=== PATIENT | female | born 1990 | race Caucasian/White ===

== ENCOUNTER 2021-05-19 09:10 | Emergency (ER) | payer MEDICAID ==
[~2021-05-19] VITALS: Ht 165.1 cm; Wt 82.6 kg
[2021-05-19 09:27] VITALS: BP 110/73
--- NOTE | 2021-05-19 09:34 | PHYS DOC ---
Past History Past Surgical History: No Surgical History Alcohol Use: None Adult General Chief Complaint Chief Complaint: MECHANICAL FALL HPI HPI Patient is a 30-year-old female presenting for fall. Patient reports fall was 1 week ago while walking down stairs, fell directly on her backside hitting tailbone and subsequently hit five steps before coming to a complete stop. Did not hit head or lose consciousness. Reports since then she has taken NSAIDs and Tylenol without significant pain relief. She has been seen in outpatient setting by her pain management physicians and is pending outpatient MRI. Ongoing pain with occasional radiation of electric type pain along lateral and posterior portion of right lower extremity prompted her to come in for evaluation. No changes in bladder or bowel function, no saddle anesthesia or other concerning red flag signs or symptoms of back pain Review of Systems Review of Systems Fourteen body systems of review of systems have been reviewed. See HPI for pertinent positives and negative responses, other patel all other systems are negative, non-pertinent or non-contributory Allergies Allergies Allergies Coded Allergies Type Severity Reaction Last Updated Verified metoclopramide Allergy Unknown 05/19/21 Yes Physical Exam Physical Exam Constitutional: Well developed, well nourished, no acute distress, non-toxic appearance. HENT: Normocephalic, atraumatic, bilateral external ears normal, oropharynx moist, no oral exudates, nose normal. Eyes: PERRLA, EOMI, conjunctiva normal, no discharge. Neck: Normal range of motion, no tenderness, supple, no stridor. Cardiovascular: Heart rate regular, sinus rhythm, no murmurs rubs or gallops Lungs & Thorax: Bilateral breath sounds clear to auscultation Abdomen: Bowel sounds normal, soft, no tenderness, no masses, no pulsatile masses. Nonsurgical abdomen, no peritoneal signs Skin: Warm, dry, no erythema, no rash. Back: No midline step-off or tenderness, no CVA tenderness. There is pain to palpation directly over midline along sacrum region Extremities: No tenderness, no cyanosis, no clubbing, ROM intact, no edema. Neurologic: Alert and oriented X 3, no saddle anesthesia and/or bladder or bowel incontinence, cranial nerves II through XII intact, downgoing toes bilaterally with stimulation, normal motor & sensory function, no focal deficits noted. Psychologic: Affect normal, judgement normal, mood normal. Current Patient Data Vital Signs Vital Signs Date Time Temp Pulse Resp B/P (MAP) Pulse Ox O2 Delivery O2 Flow Rate FiO2 05/19/21 09:27 98.4 77 18 110/73 (85) 98 Room Air EKG EKG [] Radiology/Procedures Radiology/Procedures EXAM: Pelvis CT without intravenous contrast. HISTORY: Fall. TECHNIQUE: Computed tomographic images of the pelvis were obtained without contrast. Multiplanar reformatting was performed. *One or more of the following individualized dose reduction techniques were utilized for this examination: 1. Automated exposure control. 2. Adjustment of the mA and/or kV according to patient size. 3. Use of iterative reconstruction technique. COMPARISON: None. FINDINGS: There is no fracture. The femoral heads are normal in configuration and location. The pubis symphysis and sacroiliac joints are intact. There is sacralization of the right L5 transverse process resulting in suspected art iculation with the underlying sacrum. There is a shallow posterior central to left paracentral disc protrusion superimposed on a disc bulge at L4-L5. This is associated with mild left foraminal and central canal stenosis. There is no appendicitis. There is an IUD within the uterus. There are multiple ovarian follicles. There is trace pelvic free fluid, within physiologic limits f or a premenopausal female. There is no lymphadenopathy. IMPRESSION: 1. No acute osseous finding. 2. Transitional lumbosacral segment, a normal variant. 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 3. Degenerative change at L4-L5, resulting in mild left foraminal and central canal stenosis. Electronically signed by: Jovanna Thornton MD (05/19/2021 9:58 AM) [id number] Heart Score C/O Chest Pain: No Risk Factors: Risk Factors: DM, Current or recent (<one month) smoker, HTN, HLP, family history of CAD, obesity. Risk Scores: Risk Factors: DM, Current or recent (<one month) smoker, HTN, HLP, family history of CAD, obesity. Course & Med Decision Making Course & Med Decision Making ABCs unremarkable HPI physical exam and comprehensive ER work-up consisting of CT of pelvis in setting of recent trauma unremarkable for any emergent or surgical issues. Pain controlled with provided ER intervention. She is pending outpatient MRI No further diagnostic work-up indicated in ER setting. Discharge with close PCP follow-up advised Johnathan Disclaimer Johnathan Disclaimer This electronic medical record was generated, in whole or in part, using a voice recognition dictation system. Departure Departure: Impression: Primary Impression: Tailbone injury Disposition: HOME / SELF CARE / HOMELESS Condition: STABLE Referrals: NON,STAFF (PCP) Additional Instructions: You were seen for most likely at that level musculoskeletal pain from your fall. You should return to the ED if you develop worsening pain, fever, numbness, tingling, weakness, or any other new or concerning symptoms. Your pain is most likely due to a muscle strain and should improve with ibuprofen and/or Tylenol, stretching, and activity. Please contact your outpatient [employer] for continued outpatient care. If it does not improve you should follow up with a primary care doctor. AMELIE HURLEY DO May 19, 2021 09:34
--- NOTE | 2021-05-19 10:01 | RAD ---
EXAM: Pelvis CT without intravenous contrast. HISTORY: Fall. TECHNIQUE: Computed tomographic images of the pelvis were obtained without contrast. Multiplanar refo rmatting was performed. *One or more of the following individualized dose reduction techniques were utilized for this examina tion: 1. Automated exposure control. 2. Adjustment of the mA and/or kV according to patient size. 3. Use of iterative reconstruction technique. COMPARISON: None. FINDINGS: There is no fracture. The femoral heads are normal in configuration and location. The pubis symphysis and sacroiliac joints are intact. There is sacralization of the right L5 transverse proces s resulting in suspected articulation with the underlying sacrum. There is a shallow posterior central to left paracentral disc protrusion superimposed on a disc bulge at L4-L5. This is associated with mild left foraminal and central canal stenosis. There is no appendicitis. There is an IUD within the uterus. There are multiple ovarian follicles. Th ere is trace pelvic free fluid, within physiologic limits for a premenopausal female. There is no lym phadenopathy. IMPRESSION: 1. No acute osseous finding. 2. Transitional lumbosacral segment, a normal variant. 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 3. Degenerative change at L4-L5, resulting in mild left foraminal and central canal stenosis. Electronically signed by: Jovanna Thornton MD (05/19/2021 9:58 AM) [id number]
[2021-05-19] MEDS ORDERED: KETOROLAC 60 MG/2 ML VIAL. IM ONE (10:30)
== END 2021-05-19 11:03 | disposition home or self-care (01) ==
LOC: ER 09:10
DX: S39.92XA Unspecified injury of lower back, initial encounter (principal); Z88.8 Allergy status to other drugs, medicaments and biological substances; W18.39XA Other fall on same level, initial encounter; Y93.01 Activity, walking, marching and hiking; Y92.89 Other specified places as the place of occurrence of the external cause; Y99.8 Other external cause status
CPT/HCPCS: 72192; 96372; 99284; J1885